=== PATIENT | male | born 1970 | race Caucasian/White ===

== ENCOUNTER 2018-06-14 10:06 | Emergency (ER) | payer MEDICAID, SELFPAY ==
[2018-06-14 10:07] VITALS: BP 149/81; PULSE 75; RESP 16; TEMP 36.6; O2SAT 97; BMI 35.4
--- NOTE | 2018-06-14 10:50 | RAD_ITS ---
STUDY: X-RAY CHEST REASON FOR EXAM: Male, 47 years old. Cough. TECHNIQUE: PA and lateral views of the chest. COMPARISON: None. FINDINGS: The lungs are clear and expanded. There is no demonstrated pleural abnormality. Normal size heart. Normal mediastinum and hannah. Normal visualized pulmonary arteries. Normal visualized aortic arch and descending thoracic aorta. Normal visualized thoracic spine. Normal visualized ribs, clavicles, and shoulders. There is no demonstrated abnormality of the visualized soft tissue structures of the upper abdomen. RAD/Chest PA and Lateral IMPRESSION: Normal x-ray examination of the chest. Electronically Signed: Ruben Lloyd, at 11:06 EST , Service support ,
--- NOTE | 2018-06-14 11:15 | ED.VISSUMM ---
- ER Visit Summary Date of Service: 06/14/18 Chief Complaint: Cough History of Present Illness: The patient is a 47 M who presents the emergency department with 4 days of cough and sputum production. He notes a subjective fever and chills. He notes rhinorrhea. Notes that he has had a small amount of diarrhea. No generalized myalgias or headache. He is a long-term pack-a-day smoker. No sniffing of medical problems has no primary care physician has no allergies. He does note some wheezing intermittently that improves with cough. He notes his chest and abdomen is sore from coughing. Physical Examination: Afebrile vital signs are stable Gen: Well-nourished well-developed Head: Normocephalic atraumatic Eyes: Perrl EOMI ENT: TMs clear turbinate edema and postnasal drip moist mucous membranes Neck: Supple no lymphadenopathy no JVD nontender CVS: Regular rate rhythm no murmurs normal S1-S2 Respiratory: No distress clear to auscultation bilaterally chest nontender Abdomen: Soft nontender nondistended normal bowel sounds no masses Back: Nontender Extremity: Nontender no edema Skin: Normal color no rash Neuro: alert orientated ?3 CN II-XII intact normal strength sensation reflexes gait cerebellar Psych: Normal affect normal mood Test Results: Chest x-ray negative Emergency Department Course and Treatment: Patient was started on albuterol MDI as well as doxycycline. Impression: 1. Acute bronchitis This note was generated with [employer] dictation software. It may contain incorrect words, spelling, and punctuation that were not noted in review of the chart prior to signing ED Disposition - Plan for ED Patient: Disposition: Home or Assisted Living Instructions: Acute Bronchitis Prescriptions: Albuterol Inhaler [Ventolin Hfa] 2 puff INHALATION Q4H PRN PRN #1 inhaler PRN Reason: Wheezing Doxycycline 100 mg PO BID #20 cap Referrals: Lucas Gatica III, MD [STAFF PHYSICIAN] - As Needed
[2018-06-14 11:59] VITALS: RESP 16; RESP 19
== END 2018-06-14 12:01 | disposition home or self-care (01) ==
PROVIDERS: Emergency Provider Emergency Medicine
DX: J20.9 Acute bronchitis, unspecified (principal); F17.210 Nicotine dependence, cigarettes, uncomplicated
CPT/HCPCS: 71046; 99282

== ENCOUNTER 2018-09-07 19:12 | Emergency (ER) | payer MEDICAID, SELFPAY ==
[2018-09-07 19:14] VITALS: BP 128/84; PULSE 66; RESP 18; TEMP 36.4; O2SAT 95; BMI 30.8
--- NOTE | 2018-09-07 20:01 | ED.DCSUM_ITS ---
History of Present Illness Chief Complaint: Cough Detail of Chief Complaint: Onset this morning Informant: Patient Onset: Today Context: Sudden Onset Timing: Continuous Quality: Nonproductive cough with wheezing Location: Respiratory Current Severity: Mild Maximum Severity: Moderate Worsened by: Smoking and coughing Relieved by: Nothing Associated Symptoms: No constitutional symptoms Narrative: Patient is a 48-year-old male who smokes 1 pack of status per day presents with coughing, shortness of breath and wheezing. Cough is nonproductive. Denies runny nose, nasal congestion or postnasal drip. I sore throat. Denies trouble with speech or swallowing. Denies change in voice. Denies ear pain, tinnitus or decreased hearing. He denies headache. He denies ocular, visual or auditory symptoms. He states his mother was recently diagnosed with bronchitis. Prior similar symptoms: No Recent Illness/Hospitalization: No - Past Medical History (1) No significant past medical history Status: Acute Past Medical History - Allergies and Home Meds Allergies/Adverse Reactions: Allergies No Known Allergies Allergy (Verified 09/07/18 19:12) Primary Care Physician: Care Physician,No Primary [Primary Care Provider] - Prior records reviewed: Yes Past Medical History: None Lives: With Family Smoking Status: Current every day smoker Alcohol: Rare Review of Systems General: Denies: Chills, Fever, Malaise, Subjective ENT: Denies: Bilateral ear pain, Rhinorrhea, Sore throat Cardiovascular: Denies: Chest pain, Palpitations, Heart racing Respiratory: Reports: Dyspnea, Cough. Denies: Sputum, Dyspnea on exertion, Orthopnea, Paroxysmal nocturnal dyspnea Gastrointestinal: Denies: Abdominal pain, Nausea, Vomiting, Diarrhea Musculoskeletal: Denies: Myalgias, Arthralgias, Neck pain, Back pain, Swelling, Extremity Pain Skin: Denies: Rash Neurological: Denies: Headache, Weakness, Parasthesia, Numbness Allergy: Denies: Uticaria, Swelling of the mouth Physical Exam Vital Signs/Narrative: Vital Signs Temp Pulse Resp BP Pulse Ox 09/07/18 19:14 97.6 F L 66 18 128/84 H 95 Inital Vital Signs reviewed: Yes General: Well nourished, Well developed, No Acute Distress Head: Normocephalic, Atraumatic Eyes: Perrl, EOMI. Negative for: Pale conjunctiva, Scleral icterus ENT: Moist mucous membranes, No rhinorrhea, TM's clear Neck: Supple, Nontender, No lymphadenopathy, No JVD Cardiovascular: Regular rate, Regular rhythm, No murmurs, Normal S1, Normal S2 Respiratory: No distress, Chest nontender, Wheezing. Negative for: CTA bilaterally Abdomen: Soft, Nontender, Nondistended, Normal bowel sounds, No masses Extremities: Nontender, No edema Skin: Normal color, No rash. Negative for: Cyanosis, Jaundice Neurological: Alert, Oriented x3, Cranial nerves II-XII grossly intact, Normal Strength, Normal Sensation Psychological: Normal affect, Normal Mood Diagnostic/Tx/Re-eval - Medical Decision Making Onset of symptoms 12 hours ago nebulizers. Radiologic imaging is not indicated. with viral infection will treat with and exposure to patient Patient was treated with aerosols. I was informed by nursing staff he was upset and left. He did not sign out AMA because he left prior to me being able to r eevaluate him. ED Disposition - Plan for ED Patient: Disposition: Home or Assisted Living Diagnosis: Asthmatic bronchitis without complication Referrals: Care Physician,No Primary [Primary Care Provider] -
[2018-09-07] MEDS: Ipratropium/Albuterol Sulfate 3 ML AMPUL.NEB INHALATION (20:09)
[2018-09-07] MEDS: Albuterol 2.5 MG/3 ML VIAL.NEB. INHALATION (20:09)
[2018-09-07 20:10] VITALS: PULSE 58; RESP 16
--- NOTE | 2018-09-07 20:58 | ED.RN ---
pt aggressively opens door and loudly says in calle I don't have time for this, I have been waiting for 2 hours, just give me something and let me go. Pt made aware the physician is busy and I will get AMA papers if he wants to leave. Dr. Mack notified. AMA papers presented to pt. Pt refuses to sign and says i'm not signing shit. I have been here for over 2 hours. Pt left swearing and cussing at nurse.
== END 2018-09-07 21:02 | disposition home or self-care (01) ==
LOC: ED 20:07
PROVIDERS: Emergency Provider Emergency Medicine
DX: J45.909 Unspecified asthma, uncomplicated (principal); Z72.0 Tobacco use
CPT/HCPCS: 94640; 99281

== ENCOUNTER 2020-03-28 09:17 | Emergency (ER) | payer MEDICAID, SELFPAY ==
[2020-03-28 09:18] VITALS: BP 144/118; PULSE 96; RESP 16; TEMP 36.6; O2SAT 100; BMI 28.7
--- NOTE | 2020-03-28 09:35 | EKG12_ITS ---
Test Reason : DYSRHYTHMIA Blood Pressure : / mmHG Vent. Rate : 078 BPM Atrial Rate : 078 BPM P-R Int : 188 ms QRS Dur : 086 ms QT Int : 340 ms P-R-T Axes : 081 093 064 degrees QTc Int : 387 ms Normal sinus rhythm Normal ECG Confirmed by TAWNYA CABALLERO, CHANDANA ([id number]), editorial writer PHIL BARAHONA ([id number]) on 04/03/2020 10:21:16 AM Referred By: MENDOZA Confirmed By:MELISSA BOWLING MD
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
[2020-03-28 10:03] VITALS: BP 140/96
[2020-03-28 10:15] VITALS: BP 140/96
--- NOTE | 2020-03-28 10:22 | CM.ED ---
SOCIAL WORK Updated by Dr. Medel, patient with history of schizophrenia and meth use. Patient left ER without being seen by SW. José Miguel Cuevas, OXYGEN EQUIPMENT TECHNICIAN, LABOR AND DELIVERY NURSE
== END 2020-03-28 10:26 | disposition home or self-care (01) ==
PROVIDERS: Emergency Provider Emergency Medicine
DX: R07.9 Chest pain, unspecified (principal); F20.9 Schizophrenia, unspecified; F17.200 Nicotine dependence, unspecified, uncomplicated
CPT/HCPCS: 71045; 93005; 99282